=== PATIENT | female | born 1985 | race Native Hawaiian/Other Pacific Islander ===

== ENCOUNTER 2022-07-29 14:22 | Emergency (ER) | payer OTHER ==
[2022-07-29 17:13] LABS: Basophils % (Auto) 0.3 % (0.0-1.8); Eosinophils # (Auto) 0.1 K/mm3 (0.0-0.4); Eosinophils % (Auto) 0.8 % (0.0-4.3); Hematocrit 35.6 % (30.3-42.9); Hemoglobin 11.3 gm/dl (10.1-14.3); Lymphocytes # (Auto) 2.2 K/mm3 (1.2-5.4); Lymphocytes % (Auto) 18.3 % (13.4-35.0); Mean Corpuscular HGB Conc 32 % (30-34); Mean Corpuscular Volume 75 fl (79-97); Monocytes # (Auto) 0.5 K/mm3 (0.0-0.8); Monocytes % (Auto) 4.4 % (0.0-7.3); Platelet Count 293 K/mm3 (140-440); Red Blood Count 4.76 M/mm3 (3.65-5.03); Red Cell Distribution Width 16.3 % (13.2-15.2)
[2022-07-29 17:21] LABS: Alanine Aminotransferase 10 units/L (7-56); Albumin 4.4 g/dL (3.9-5); Blood Urea Nitrogen 14 mg/dL (7-17); Calcium 9.3 mg/dL (8.4-10.2); Hemolysis Index 5
[2022-07-29 17:25] LABS: BUN/Creatinine Ratio 20
--- NOTE | 2022-07-29 17:37 | Ultrasound Report ---
ULTRASOUND OBSTETRIC INDICATION / CLINICAL INFORMATION: vaginal bleeding. TECHNIQUE: Transabdominal and Transvaginal. COMPARISON: None available. FINDINGS: GESTATIONAL SAC: Well-defined oval shape and intrauterine in location. YOLK SAC: No significant abnormality. EMBRYO/FETUS: No significant abnormality. - [place]-Rump Length = 0.4 cm = 6, 0 weeks, days - Heart Rate, beats per minute (if present) = 118 There is a 12 mm complex hypoechoic area in the level of the cervix which could represent blood withi n the cervical canal. This could represent a complex cyst at cervix. ADNEXA: There is a 1.2 cm complex cyst in the right ovary likely representing a hemorrhagic cyst. FREE FLUID: None. ADDITIONAL FINDINGS: None. IMPRESSION: 1. Single, living intrauterine with estimated sonographic age of 6, 0 weeks, days. 2. Complex fluid at the cervix could represent blood in the endometrial canal. Could represent a comp sofia cyst. Signer Name: Mohan Gould MD Signed: 07/29/2022 5:33 PM Workstation Name: [employer] [facility]
--- NOTE | 2022-07-29 17:37 | Ultrasound Report ---
ULTRASOUND OBSTETRIC INDICATION / CLINICAL INFORMATION: vaginal bleeding. TECHNIQUE: Transabdominal and Transvaginal. COMPARISON: None available. FINDINGS: GESTATIONAL SAC: Well-defined oval shape and intrauterine in location. YOLK SAC: No significant abnormality. EMBRYO/FETUS: No significant abnormality. - [place]-Rump Length = 0.4 cm = 6, 0 weeks, days - Heart Rate, beats per minute (if present) = 118 There is a 12 mm complex hypoechoic area in the level of the cervix which could represent blood withi n the cervical canal. This could represent a complex cyst at cervix. ADNEXA: There is a 1.2 cm complex cyst in the right ovary likely representing a hemorrhagic cyst. FREE FLUID: None. ADDITIONAL FINDINGS: None. IMPRESSION: 1. Single, living intrauterine with estimated sonographic age of 6, 0 weeks, days. 2. Complex fluid at the cervix could represent blood in the endometrial canal. Could represent a comp sofia cyst. Signer Name: Mohan Gould MD Signed: 07/29/2022 5:33 PM Workstation Name: [employer]
--- NOTE | 2022-07-30 00:31 | Emergency Department Report ---
ED HPI - General Chief complaint: Vaginal Bleeding Stated complaint: 6WEEKS PREG VAG BLEEDING Time Seen by Provider: 07/30/22 00:02 Source: patient Mode of arrival: Ambulatory Limitations: No Limitations - History of Present Illness Initial comments: Patient 36-year-old female who is A2, last menstrual cycle 8 weeks ago who presents for abdominal pain with vaginal spotting. Patient denies fevers or chills there is no nausea or vomiting. There is mild bilateral lower abdominal cramping. Symptoms are exacerbated by activity and movement. Symptoms are relieved by nothing tried. Patient denies concern for STI. MD Complaint: abdominal pain, vaginal bleeding - Related Data Allergies Allergy/AdvReac Type Severity Reaction Status Date / Time No Known Allergies Allergy Unverified 07/29/22 14:50 ED Review of Systems ROS: Stated complaint: 6WEEKS PREG VAG BLEEDING Other details as noted in HPI Constitutional: denies: chills, fever Eyes: denies: eye pain, eye discharge, vision change ENT: denies: ear pain, throat pain Respiratory: denies: cough, shortness of breath, wheezing Cardiovascular: as per HPI Endocrine: no symptoms reported Gastrointestinal: abdominal pain. denies: nausea, vomiting Genitourinary: other. denies: urgency, dysuria, frequency, hematuria, discharge Musculoskeletal: back pain Skin: as per HPI Neurological: denies: headache, weakness, paresthesias Psychiatric: denies: anxiety, depression Hematological/Lymphatic: denies: easy bleeding, easy bruising ED Past Medical Hx - Past Medical History Previous Medical History?: Yes Additional medical history: asthma, htn - Surgical History Past Surgical History?: No ED Physical Exam - General Limitations: No Limitations General appearance: alert, in no apparent distress - Head Head exam: Present: normocephalic, normal inspection - Eye Eye exam: Present: EOMI Pupils: Present: normal accommodation - ENT ENT exam: Present: mucous membranes moist - Neck Neck exam: Present: normal inspection, full ROM. Absent: tenderness, lymphadenopathy - Respiratory Respiratory exam: Present: normal lung sounds bilaterally. Absent: respiratory distress, wheezes - Cardiovascular Cardiovascular Exam: Present: regular rate, normal rhythm, normal heart sounds. Absent: systolic murmur, diastolic murmur, rubs, gallop - GI/Abdominal GI/Abdominal exam: Present: soft, normal bowel sounds. Absent: distended, te nderness - Rectal Rectal exam: Present: deferred - External exam: Present: other (Deferred per patient) - Extremities Exam Extremities exam: Present: normal inspection, full ROM, normal capillary refill. Absent: pedal edema - Back Exam Back exam: Present: normal inspection, full ROM. Absent: CVA tenderness (R), CVA tenderness (L) - Neurological Exam Neurological exam: Present: alert, oriented X3, CN II-XII intact, normal gait - Expanded Neurological Exam Expanded Patient oriented to: Present: person, place, time Speech: Present: fluid speech Motor strength exam: RUE: 5, LUE: 5, RLE: 5, LLE: 5 Best Eye Response ([place]): (4) open spontaneously Best Motor Response ([place]): (6) obeys commands Best Verbal Response ([place]): (5) oriented [place] Total: 15 - Psychiatric Psychiatric exam: Present: normal affect, normal mood - Skin Skin exam: Present: warm, dry, intact, normal color. Absent: rash ED Course Vital Signs 07/29/22 14:45 Temperature 98 F Pulse Rate 80 Respiratory 16 Rate Blood Pressure 162/88 [Right] O2 Sat by Pulse 99 Oximetry ED Medical Decision Making - Lab Data Result diagrams: 07/29/22 16:46 07/29/22 16:46 Labs 07/29/22 07/29/22 07/29/22 16:46 16:46 16:46 WBC 12.1 H RBC 4.76 Hgb 11.3 Hct 35.6 MCV 75 L MCH 24 L MCHC 32 RDW 16.3 H Plt Count 293 Lymph % (Auto) 18.3 [place] % (Auto) 4.4 Eos % (Auto) 0.8 Baso % (Auto) 0.3 Lymph # (Auto) 2.2 [place] # (Auto) 0.5 Eos # (Auto) 0.1 Baso # (Auto) 0.0 Seg Neutrophils % 76.2 H Seg Neutrophils # 9.3 H Sodium 136 L Potassium 3.5 L Chloride 102.6 Carbon Dioxide 22 Anion Gap 15 BUN 14 Creatinine 0.7 Estimated GFR > 60 BUN/Creatinine Ratio 20 Glucose 99 Calcium 9.3 Total Bilirubin 0.40 AST 11 ALT 10 Alkaline Phosphatase 56 Total Protein 7.2 Albumin 4.4 Albumin/Globulin Ratio 1.6 HCG, Quant 98696 H - Radiology Data Radiology results: report reviewed, image reviewed ULTRASOUND OBSTETRIC INDICATION / CLINICAL INFORMATION: vaginal bleeding. TECHNIQUE: Transabdominal and Transvaginal. COMPARISON: None available. FINDINGS: GESTATIONAL SAC: Well-defined oval shape and intrauterine in location. YOLK SAC: No significant abnormality. EMBRYO/FETUS: No significant abnormality. - [place]-Rump Length = 0.4 cm = 6, 0 weeks, days - Heart Rate, beats per minute (if present) = 118 There is a 12 mm complex hypoechoic area in the level of the cervix which could represent blood within the cervical canal. This could represent a complex cyst at cervix. ADNEXA: There is a 1.2 cm complex cyst in the right ovary likely representing a hemorrhagic cyst. FREE FLUID: None. ADDITIONAL FINDINGS: None. IMPRESSION: 1. Single, living intrauterine with estimated sonographic age of 6, 0 weeks, days. 2. Complex fluid at the cervix could represent blood in the endometrial canal. Could represent a complex cyst. Signer Name: Mohan Gould MD Signed: 07/29/2022 5:33 PM Workstation Name: [employer] Transcribed By: SS Dictated By: Mohan Gould MD Electronically Authenticated By: Mohan Gould MD Signed Date/Time: 07/29/221732 DD/ 29 TD/TT: ULTRASOUND OBSTETRIC INDICATION / CLINICAL INFORMATION: vaginal bleeding. TECHNIQUE: Transabdominal and Transvaginal. COMPARISON: None available. FINDINGS: GESTATIONAL SAC: Well-defined oval shape and intrauterine in location. YOLK SAC: No significant abnormality. EMBRYO/FETUS: No significant abnormality. - [place]-Rump Length = 0.4 cm = 6, 0 weeks, days - Heart Rate, beats per minute (if present) = 118 There is a 12 mm complex hypoechoic area in the level of the cervix which could represent blood within the cervical canal. This could represent a complex cyst at cervix. ADNEXA: There is a 1.2 cm complex cyst in the right ovary likely representing a hemorrhagic cyst. FREE FLUID: None. ADDITIONAL FINDINGS: None. IMPRESSION: 1. Single, living intrauterine with estimated sonographic age of 6, 0 weeks, days. 2. Complex fluid at the cervix could represent blood in the endometrial canal. Could represent a complex cyst. Signer Name: Mohan Gould MD Signed: 07/29/2022 5:33 PM Workstation Name: [facility] Transcribed By: SS Dictated By: Mohan Gould MD Electronically Authenticated By: Mohan Gould MD Signed Date/Time: 07/29/221732 DD/ 29 TD/TT: - Medical Decision Making Ultrasound OB single IUP 6 weeks 0 days. heart rate 118 beats a minute, labs noted as above. Plan DC to home follow-up with [facility] [facility] in 2 days as scheduled. Return to emergency department should symptoms worsen. Patient on pelvic rest until appropriate follow-up by [facility] Critical care attestation.: If time is entered above; I have spent that time in minutes in the direct care o f this critically ill patient, excluding procedure time. ED Disposition Clinical Impression: Vaginal bleeding during Qualifiers: Weeks of gestation: less than 8 weeks Qualified Code(s): Z3A.01 - Less than 8 weeks gestation of Disposition: 01 HOME / SELF CARE / HOMELESS Is pt being admited?: No Does the pt Need Aspirin: No Condition: Stable Instructions: First Trimester of , [id number], Vaginal Bleeding During , First Trimester Additional Instructions: Take all medications as prescribed, follow-up with your [employer] in 2 days as scheduled. Return to emergency department should symptoms worsen. Referrals: DEA SAUCEDA MD [Staff Physician] - 2-3 Days Forms: Work/School Release Form(ED) Time of Disposition: 00:35
[2022-07-30 00:57] VITALS: BP 157/83
[2022-07-30 02:26] LABS: Color,Urine Yellow (Yellow)
[2022-07-30 02:30] LABS: Bacteria,Urine 1+ /HPF (Negative); Mucus,Urine 3+ /HPF
== END 2022-07-30 01:03 | disposition home or self-care (01) ==
LOC: ED 14:22
DX: O20.8 Other hemorrhage in early pregnancy (principal); Z3A.01 Less than 8 weeks gestation of pregnancy
CPT/HCPCS: 36415; 76801; 76817; 80053; 81001; 84702; 85025; 99284